=== PATIENT | male | born 1990 | race Caucasian/White ===

== ENCOUNTER 2018-01-12 10:06 | Emergency (ER) | payer OTHER ==
[2018-01-12 10:20] VITALS: BP 150/71
--- NOTE | 2018-01-12 10:32 | ED Physician Documentation ---
PD HPI LOWER EXT INJURY - Stated complaint Stated Complaint: ANKLE PX - Chief complaint Chief Complaint: Trauma Ext - History obtained from History obtained from: Patient - History of Present Illness PD HPI LOW EXT INJURY LOCATION: Left, Ankle Type of injury: Fall, Twist Where injury occurred: Home Timing - onset: Today Timing - duration: Minutes Timing - details: Abrupt onset, Still present Improved by: Rest, Immobilization Worsened by: Moving, Palpating Associated symptoms: Swelling. No: Weakness, Numbness Contributing factors: No: Anticoagulated Similar symptoms before: Has not had sx before Recently seen: Not recently seen - Additional information Additional information: 27-year-old male was putting on his pants this morning and he got his co-toe caught in the drawstring of the bottom of the pants on the left side and this caused him to fall over. As he fell over he caught himself with his left foot and it twisted. He has a lot of pain in the medial aspect of the ankle if he tries to bear weight. If he is not bearing weight there is not that much pain. Review of Systems Constitutional: denies: Fever Respiratory: denies: Cough GI: denies: Vomiting, Constipation, Diarrhea : denies: Dysuria PD PAST MEDICAL HISTORY - Present Medications Home Medications: Ambulatory Orders Medication Instructions Recorded Confirmed Antidepressant 1 tab PO DAILY 01/12/18 - Allergies Allergies/Adverse Reactions: Allergies Allergy/AdvReac Type Severity Reaction Status Date / Time No Known Drug Allergies Allergy Verified 01/12/18 10:20 PD ED PE NORMAL - Vitals Vital signs reviewed: Yes (hypertensive ) - General General: Alert and oriented X 3, No acute distress, Well developed/nourished - HEENT HEENT: Atraumatic, PERRL - Respiratory Respiratory: No respiratory distress - Derm Derm: Normal color, Warm and dry, No rash - Extremities Extremities: No deformity, No edema, Other (There is point tenderness to the medial aspect of the ankle on the left and no tenderness to the fibular or the talofibular ligament. There is no tenderness to the proximal 5th. ) - Neuro Neuro: Alert and oriented X 3, educational therapist 2-12 intact, No motor deficit, No sensory deficit, Normal speech Eye Opening: Spontaneous Motor: Obeys Commands Verbal: Oriented GCS Score: 15 - Psych Psych: Normal mood, Normal affect Results - Vitals Vitals: Vital Signs - 24 hr 01/12/18 10:16 Temperature 35.8 C L Heart Rate 89 Respiratory 16 Rate Blood Pressure 150/71 H O2 Saturation 97 Oxygen O2 Source Room air - Rads (name of study) ankle Radiology: Prelim report reviewed (Impression: No fracture or dislocation.), EMP read indepedently, See rad report PD MEDICAL DECISION MAKING - ED course Complexity details: reviewed results, re-evaluated patient, considered differential, d/w patient ED course: 27-year-old male twisted his ankle has pain in the medial aspect of the ankle he has no evidence of fracture on x-ray examination. He is placed into an ankle stirrup. - Sepsis Event Vital Signs: Vital Signs - 24 hr 01/12/18 10:16 Temperature 35.8 C L Heart Rate 89 Respiratory 16 Rate Blood Pressure 150/71 H O2 Saturation 97 Oxygen O2 Source Room air Departure - Departure Disposition: 01 Home, Self Care Clinical Impression: Ankle sprain Qualifiers: Encounter type: initial encounter Involved ligament of ankle: other ligament Laterality: left Qualified Code(s): S93.492A - Sprain of other ligament of left ankle, initial encounter Condition: Stable Instructions: ED Sprain Ankle W X Ray [facility] Forms: Activity restrictions
--- NOTE | 2018-01-12 11:02 | XRAY Report ---
Procedure Date: 01/12/2018 Accession Number: [id number] / [id number] Procedure: XR - Ankle 3 View LT CPT Code: FULL RESULT: EXAM: LEFT ANKLE RADIOGRAPHY EXAM DATE: 01/12/2018 10:38 AM. CLINICAL HISTORY: Fall, twist, medial pain to distal tibia with weightbearing. COMPARISON: None. TECHNIQUE: 3 views. FINDINGS: Bones: Normal. No fractures or bone lesions. Joints: Normal. No effusion. No subluxations. The ankle mortise is normally aligned. Soft Tissues: Mild soft tissue swelling about the ankle. IMPRESSION: No fracture or dislocation. [facility]
== END 2018-01-12 11:26 | disposition home or self-care (01) ==
LOC: ED 10:06
DX: S93.492A Sprain of other ligament of left ankle, initial encounter (principal); X50.9XXA Other and unspecified overexertion or strenuous movements or postures, initial encounter; W18.30XA Fall on same level, unspecified, initial encounter; Y92.009 Unspecified place in unspecified non-institutional (private) residence as the place of occurrence of the external cause
CPT/HCPCS: 99283